=== PATIENT | female | born 1935 | race Caucasian/White ===

== ENCOUNTER 2017-05-14 07:40 | Outpatient (CLI) | payer MEDICARE ==
[~2017-05-14 07:40] MED LIST: ACETAMINOPHEN 325 MG TABLET PO PRN; CONTAINER EMPTY IV PRN; DEXTROSE 5%-WATER 250 ML IV PRN; DIPHENHYDRAMINE HCL 50 MG/ML VIAL IV PRN; IMMUNE GLOB GAM CAPRYLATE IV PRN
[2017-05-14 08:39] VITALS: BP 180/90
== END 2017-05-14 10:59 | disposition home or self-care (01) ==
LOC: II 07:40 → 5TH 08:27 → II 10:59
PROVIDERS: ATTEND Internal Medicine
PROC: 30233S1 Transfusion of Nonautologous Globulin into Peripheral Vein, Percutaneous Approach (ICD-10-PCS; principal; 2017-05-14)
PROC: 3E033GC Introduction of Other Therapeutic Substance into Peripheral Vein, Percutaneous Approach (ICD-10-PCS; 2017-05-14)
DX: D69.3 Immune thrombocytopenic purpura (principal)
CPT/HCPCS: 96413; 96415; 96374; 96417; J1561; A9270 ×2; J1200; 96365; 96366; 96375; J3490

== ENCOUNTER 2017-08-04 08:57 | Outpatient (CLI) | payer MEDICARE ==
[~2017-08-04 08:57] MED LIST changes: -ACETAMINOPHEN 325 MG TABLET PO PRN; -CONTAINER EMPTY IV PRN; -DEXTROSE 5%-WATER 250 ML IV PRN; -DIPHENHYDRAMINE HCL 50 MG/ML VIAL IV PRN; +DISPOSABLE SUBCUT PRN; -IMMUNE GLOB GAM CAPRYLATE IV PRN; +ROMIPLOSTIM SUBCUT PRN
[2017-08-04 09:17] VITALS: BP 128/53
== END 2017-08-04 09:33 | disposition home or self-care (01) ==
LOC: II 08:57 → 5TH 08:59 → II 09:33
PROVIDERS: ATTEND Internal Medicine Hematology & Oncology
PROC: 3E0130M Introduction of Antineoplastic, Monoclonal Antibody, into Subcutaneous Tissue, Percutaneous Approach (ICD-10-PCS; principal; 2017-08-04)
DX: D69.3 Immune thrombocytopenic purpura (principal)
CPT/HCPCS: 96401; J3490; J2796

== ENCOUNTER 2017-08-11 12:02 | Outpatient (CLI) | payer MEDICARE ==
[2017-08-11 12:28] VITALS: BP 144/85
[2017-08-11] MEDS ORDERED: ROMIPLOSTIM SUBCUT PRN (12:39)
[2017-08-11] MEDS ORDERED: DISPOSABLE SUBCUT PRN (12:39)
== END 2017-08-11 13:40 | disposition home or self-care (01) ==
LOC: II 12:02 → 5TH 12:03 → II 13:40
PROVIDERS: ATTEND Internal Medicine Hematology & Oncology
PROC: 3E0130M Introduction of Antineoplastic, Monoclonal Antibody, into Subcutaneous Tissue, Percutaneous Approach (ICD-10-PCS; principal; 2017-08-11)
DX: D69.3 Immune thrombocytopenic purpura (principal)
CPT/HCPCS: 96401; J3490; J2796

== ENCOUNTER 2017-08-18 12:48 | Outpatient (CLI) | payer MEDICARE ==
[2017-08-18] MEDS ORDERED: ROMIPLOSTIM SUBCUT PRN (13:15)
[2017-08-18] MEDS ORDERED: DISPOSABLE SUBCUT PRN (13:15)
[2017-08-18 14:21] VITALS: BP 118/45
== END 2017-08-18 14:22 | disposition home or self-care (01) ==
LOC: II 12:48 → 5TH 12:49 → II 14:22
PROVIDERS: ATTEND Internal Medicine
PROC: 3E0130M Introduction of Antineoplastic, Monoclonal Antibody, into Subcutaneous Tissue, Percutaneous Approach (ICD-10-PCS; principal; 2017-08-18)
DX: D69.3 Immune thrombocytopenic purpura (principal)
CPT/HCPCS: 96401; J3490; J2796

== ENCOUNTER 2017-09-08 14:13 | Outpatient (CLI) | payer MEDICARE ==
[2017-09-08 14:29] VITALS: BP 156/52
[2017-09-08] MEDS ORDERED: DISPOSABLE SUBCUT PRN ×2 (15:06→15:18)
[2017-09-08] MEDS ORDERED: ROMIPLOSTIM SUBCUT PRN ×2 (15:06→15:18)
== END 2017-09-08 16:13 | disposition home or self-care (01) ==
LOC: II 14:13 → 5TH 14:15 → II 16:13
PROVIDERS: ATTEND Internal Medicine Hematology & Oncology
PROC: 3E013GC Introduction of Other Therapeutic Substance into Subcutaneous Tissue, Percutaneous Approach (ICD-10-PCS; principal; 2017-09-08)
DX: D69.3 Immune thrombocytopenic purpura (principal)
CPT/HCPCS: 96372; J3490; J2796

== ENCOUNTER 2017-09-15 12:03 | Outpatient (CLI) | payer MEDICARE ==
[2017-09-15 12:52] VITALS: BP 169/56
[2017-09-15] MEDS ORDERED: ROMIPLOSTIM SUBCUT PRN ×2 (13:05→13:12)
[2017-09-15] MEDS ORDERED: DISPOSABLE SUBCUT PRN ×2 (13:05→13:12)
== END 2017-09-15 14:20 | disposition home or self-care (01) ==
LOC: II 12:03 → 5TH 12:05 → II 14:20
PROVIDERS: ATTEND Internal Medicine Hematology & Oncology
PROC: 3E013GC Introduction of Other Therapeutic Substance into Subcutaneous Tissue, Percutaneous Approach (ICD-10-PCS; principal; 2017-09-15)
DX: D69.3 Immune thrombocytopenic purpura (principal)
CPT/HCPCS: 96372; J3490; J2796

== ENCOUNTER 2017-09-29 12:13 | Outpatient (CLI) | payer MEDICARE ==
[2017-09-29] MEDS ORDERED: DISPOSABLE SUBCUT PRN (12:54)
[2017-09-29] MEDS ORDERED: ROMIPLOSTIM SUBCUT PRN (12:54)
[2017-09-29 13:00] VITALS: BP 122/77
== END 2017-09-29 13:50 | disposition home or self-care (01) ==
LOC: II 12:13
PROVIDERS: ATTEND Internal Medicine Hematology & Oncology
PROC: 3E013GC Introduction of Other Therapeutic Substance into Subcutaneous Tissue, Percutaneous Approach (ICD-10-PCS; principal; 2017-09-29)
DX: D69.3 Immune thrombocytopenic purpura (principal)
CPT/HCPCS: 96401; J3490; J2796

== ENCOUNTER 2017-10-06 11:56 | Outpatient (CLI) | payer MEDICARE ==
[2017-10-06] MEDS ORDERED: ROMIPLOSTIM SUBCUT PRN (12:40)
[2017-10-06] MEDS ORDERED: DISPOSABLE SUBCUT PRN (12:40)
[2017-10-06 12:46] VITALS: BP 150/44
== END 2017-10-06 14:04 | disposition home or self-care (01) ==
LOC: II 11:56 → 5TH 12:38 → II 14:04
PROVIDERS: ATTEND Internal Medicine
PROC: 3E013GC Introduction of Other Therapeutic Substance into Subcutaneous Tissue, Percutaneous Approach (ICD-10-PCS; principal; 2017-10-06)
DX: D69.3 Immune thrombocytopenic purpura (principal)
CPT/HCPCS: 96372; J3490; J2796

== ENCOUNTER 2017-10-13 11:38 | Outpatient (CLI) | payer MEDICARE ==
[2017-10-13] MEDS ORDERED: DISPOSABLE SUBCUT PRN (11:52)
[2017-10-13] MEDS ORDERED: ROMIPLOSTIM SUBCUT PRN (11:52)
[2017-10-13 12:33] VITALS: BP 148/53
== END 2017-10-13 12:42 | disposition home or self-care (01) ==
LOC: II 11:38 → 5TH 11:41 → II 12:42
PROVIDERS: ATTEND Internal Medicine Hematology & Oncology
PROC: 3E013GC Introduction of Other Therapeutic Substance into Subcutaneous Tissue, Percutaneous Approach (ICD-10-PCS; principal; 2017-10-13)
DX: D69.3 Immune thrombocytopenic purpura (principal)
CPT/HCPCS: 96372; J3490; J2796

== ENCOUNTER 2017-10-20 11:54 | Outpatient (CLI) | payer MEDICARE ==
[2017-10-20] MEDS ORDERED: ROMIPLOSTIM SUBCUT PRN (12:26)
[2017-10-20] MEDS ORDERED: DISPOSABLE SUBCUT PRN (12:26)
[2017-10-20 12:40] VITALS: BP 144/54
== END 2017-10-20 13:22 | disposition home or self-care (01) ==
LOC: II 11:54 → 5TH 12:39 → II 13:22
PROVIDERS: ATTEND Internal Medicine Hematology & Oncology
PROC: 3E013GC Introduction of Other Therapeutic Substance into Subcutaneous Tissue, Percutaneous Approach (ICD-10-PCS; principal; 2017-10-20)
DX: D69.3 Immune thrombocytopenic purpura (principal)
CPT/HCPCS: 96401; J3490; J2796; 96372

== ENCOUNTER 2017-10-28 13:48 | Outpatient (CLI) | payer MEDICARE ==
[~2017-10-28 13:48] MED LIST changes: +ACETAMINOPHEN 325 MG TABLET PO PRN; +CONTAINER EMPTY IV PRN; +DEXTROSE 5%-WATER 250 ML IV PRN; +DIPHENHYDRAMINE HCL 50 MG/ML VIAL IV PRN; +IMMUNE GLOB GAM CAPRYLATE IV PRN
[2017-10-28] MEDS ORDERED: DISPOSABLE SUBCUT PRN (14:07)
[2017-10-28] MEDS ORDERED: ROMIPLOSTIM SUBCUT PRN (14:07)
== END 2017-10-28 16:04 | disposition home or self-care (01) ==
LOC: II 13:48 → 5TH 13:48 → II 16:04
PROVIDERS: ATTEND Internal Medicine
PROC: 3E013GC Introduction of Other Therapeutic Substance into Subcutaneous Tissue, Percutaneous Approach (ICD-10-PCS; principal; 2017-10-28)
DX: D69.3 Immune thrombocytopenic purpura (principal)
CPT/HCPCS: 96372; J3490; J2796; J1561

== ENCOUNTER 2017-11-04 09:29 | Outpatient (CLI) | payer MEDICARE ==
[2017-11-04] MEDS ORDERED: DISPOSABLE SUBCUT PRN (10:00)
[2017-11-04] MEDS ORDERED: ROMIPLOSTIM SUBCUT PRN (10:00)
[2017-11-04 10:21] VITALS: BP 152/49
== END 2017-11-04 10:52 | disposition home or self-care (01) ==
LOC: II 09:29 → 5TH 09:37 → II 10:52
PROVIDERS: ATTEND Internal Medicine
PROC: 3E013GC Introduction of Other Therapeutic Substance into Subcutaneous Tissue, Percutaneous Approach (ICD-10-PCS; principal; 2017-11-04)
DX: D69.3 Immune thrombocytopenic purpura (principal)
CPT/HCPCS: 96401; J3490; J2796

== ENCOUNTER → 2017-11-09 | Outpatient (CLI) | payer MEDICARE ==
[2017-11-09 16:43] LABS: ALANINE AMINOTRANSFERASE 22 U/L (9-52); ALBUMIN 3.8 g/dL (3.5-5.0); ALKALINE PHOSPHATASE 51 U/L (38-126); ANION GAP 8 (5-19); ASPARTATE AMINO TRANSFERASE 21 U/L (14-36); BILIRUBIN,DIRECT 0.4 mg/dL (0.0-0.4); BILIRUBIN,TOTAL 1.4 mg/dL (0.2-1.3); BLOOD UREA NITROGEN 24 mg/dL (7-20); CALCIUM 9.3 mg/dL (8.4-10.2); CARBON DIOXIDE 31 mmol/L (22-30); CHLORIDE 103 mmol/L (98-107); GLUCOSE 88 mg/dL (75-110); POTASSIUM 4.1 mmol/L (3.6-5.0); SODIUM 141.7 mmol/L (137-145); TOTAL PROTEIN 6.5 g/dL (6.3-8.2)
== END ==
LOC: OD 15:42
PROVIDERS: ATTEND Family Medicine
DX: I10 Essential (primary) hypertension (principal)
CPT/HCPCS: 36415; 80053

== ENCOUNTER 2017-11-11 09:10 | Outpatient (CLI) | payer MEDICARE ==
[2017-11-11 09:31] VITALS: BP 140/39
[2017-11-11] MEDS ORDERED: DISPOSABLE SUBCUT PRN (09:38)
[2017-11-11] MEDS ORDERED: ROMIPLOSTIM SUBCUT PRN (09:38)
== END 2017-11-11 10:33 | disposition home or self-care (01) ==
LOC: II 09:10 → 5TH 09:28 → II 10:33
PROVIDERS: ATTEND Internal Medicine Hematology & Oncology
PROC: 3E013GC Introduction of Other Therapeutic Substance into Subcutaneous Tissue, Percutaneous Approach (ICD-10-PCS; principal; 2017-11-11)
DX: D69.3 Immune thrombocytopenic purpura (principal)
CPT/HCPCS: 96372; J3490; J2796

== ENCOUNTER 2017-11-18 11:33 | Outpatient (CLI) | payer MEDICARE ==
[~2017-11-18 11:33] MED LIST changes: -ACETAMINOPHEN 325 MG TABLET PO PRN; -CONTAINER EMPTY IV PRN; -DEXTROSE 5%-WATER 250 ML IV PRN; -DIPHENHYDRAMINE HCL 50 MG/ML VIAL IV PRN; -IMMUNE GLOB GAM CAPRYLATE IV PRN
[2017-11-18 12:15] VITALS: BP 136/48
== END 2017-11-18 12:17 | disposition home or self-care (01) ==
LOC: II 11:33 → 5TH 11:38 → II 12:17
PROVIDERS: ATTEND Internal Medicine
PROC: 3E013GC Introduction of Other Therapeutic Substance into Subcutaneous Tissue, Percutaneous Approach (ICD-10-PCS; principal; 2017-11-18)
DX: D69.3 Immune thrombocytopenic purpura (principal)
CPT/HCPCS: 96372; J3490; J2796

== ENCOUNTER 2017-11-25 09:51 | Outpatient (CLI) | payer MEDICARE | END 2017-11-25 11:14 | disposition home or self-care (01) | LOC: II 09:51 → 5TH 09:59 → II 11:14 | PROVIDERS: ATTEND Internal Medicine Hematology & Oncology | PROC: 3E013GC Introduction of Other Therapeutic Substance into Subcutaneous Tissue, Percutaneous Approach (ICD-10-PCS; principal; 2017-11-25) | DX: D69.3 Immune thrombocytopenic purpura (principal) | CPT/HCPCS: 96402; J3490; J2796 ==

== ENCOUNTER 2017-12-02 09:18 | Outpatient (CLI) | payer MEDICARE ==
[2017-12-02] MEDS ORDERED: DISPOSABLE SUBCUT PRN (09:30)
[2017-12-02] MEDS ORDERED: ROMIPLOSTIM SUBCUT PRN (09:30)
[2017-12-02 10:16] VITALS: BP 132/41
== END 2017-12-02 10:26 | disposition home or self-care (01) ==
LOC: II 09:18 → 5TH 09:21 → II 10:26
PROVIDERS: ATTEND Internal Medicine Hematology & Oncology
PROC: 3E023GC Introduction of Other Therapeutic Substance into Muscle, Percutaneous Approach (ICD-10-PCS; principal; 2017-12-02)
DX: D69.3 Immune thrombocytopenic purpura (principal)
CPT/HCPCS: 96401; J3490; J2796

== ENCOUNTER 2017-12-09 09:29 | Outpatient (CLI) | payer MEDICARE ==
[2017-12-09] MEDS ORDERED: DISPOSABLE SUBCUT PRN (09:57)
[2017-12-09] MEDS ORDERED: ROMIPLOSTIM SUBCUT PRN (09:57)
[2017-12-09 09:59] VITALS: BP 146/48
== END 2017-12-09 10:38 | disposition home or self-care (01) ==
LOC: II 09:29 → 5TH 10:10 → II 10:38
PROVIDERS: ATTEND Internal Medicine Hematology & Oncology
PROC: 3E013GC Introduction of Other Therapeutic Substance into Subcutaneous Tissue, Percutaneous Approach (ICD-10-PCS; principal; 2017-12-09)
DX: D69.3 Immune thrombocytopenic purpura (principal)
CPT/HCPCS: 96372; J3490; J2796

== ENCOUNTER 2017-12-16 09:31 | Outpatient (CLI) | payer MEDICARE ==
[2017-12-16 09:52] VITALS: BP 149/54
== END 2017-12-16 10:20 | disposition home or self-care (01) ==
LOC: II 09:31 → 5TH 09:38 → II 10:20
PROVIDERS: ATTEND Internal Medicine Hematology & Oncology
PROC: 3E013GC Introduction of Other Therapeutic Substance into Subcutaneous Tissue, Percutaneous Approach (ICD-10-PCS; principal; 2017-12-16)
DX: D69.3 Immune thrombocytopenic purpura (principal)
CPT/HCPCS: 96372; J3490; J2796

== ENCOUNTER 2017-12-23 09:22 | Outpatient (CLI) | payer MEDICARE ==
[2017-12-23 10:36] VITALS: BP 154/50
== END 2017-12-23 10:36 | disposition home or self-care (01) ==
LOC: II 09:22 → 5TH 09:25 → II 10:36
PROVIDERS: ATTEND Internal Medicine Hematology & Oncology
PROC: 3E013GC Introduction of Other Therapeutic Substance into Subcutaneous Tissue, Percutaneous Approach (ICD-10-PCS; principal; 2017-12-23)
DX: D69.3 Immune thrombocytopenic purpura (principal)
CPT/HCPCS: 96372; J3490; J2796

== ENCOUNTER 2017-12-30 09:29 | Outpatient (CLI) | payer MEDICARE ==
[2017-12-30] MEDS ORDERED: DISPOSABLE SUBCUT PRN (09:44)
[2017-12-30] MEDS ORDERED: ROMIPLOSTIM SUBCUT PRN (09:44)
[2017-12-30 09:49] VITALS: BP 178/71
== END 2017-12-30 10:40 | disposition home or self-care (01) ==
LOC: II 09:29 → 5TH 09:32 → II 10:40
PROVIDERS: ATTEND Internal Medicine Hematology & Oncology
PROC: 3E013GC Introduction of Other Therapeutic Substance into Subcutaneous Tissue, Percutaneous Approach (ICD-10-PCS; principal; 2017-12-30)
DX: D69.3 Immune thrombocytopenic purpura (principal)
CPT/HCPCS: 96372; J3490; J2796

== ENCOUNTER 2018-01-06 09:25 | Outpatient (CLI) | payer MEDICARE ==
[2018-01-06] MEDS ORDERED: DISPOSABLE SUBCUT PRN (09:55)
[2018-01-06] MEDS ORDERED: ROMIPLOSTIM SUBCUT PRN (09:55)
== END 2018-01-06 10:50 | disposition home or self-care (01) ==
LOC: II 09:25 → 5TH 09:26 → II 10:50
PROVIDERS: ATTEND Internal Medicine Hematology & Oncology
PROC: 3E013GC Introduction of Other Therapeutic Substance into Subcutaneous Tissue, Percutaneous Approach (ICD-10-PCS; principal; 2018-01-06)
DX: D69.3 Immune thrombocytopenic purpura (principal)
CPT/HCPCS: 96401; J3490; J2796

== ENCOUNTER → 2018-01-11 | Outpatient (CLI) | payer MEDICARE ==
[2018-01-11 12:30] LABS: ALANINE AMINOTRANSFERASE 26 U/L (9-52); ALBUMIN 3.8 g/dL (3.5-5.0); ALKALINE PHOSPHATASE 53 U/L (38-126); ANION GAP 8 (5-19); ASPARTATE AMINO TRANSFERASE 20 U/L (14-36); BILIRUBIN,DIRECT 0.3 mg/dL (0.0-0.4); BILIRUBIN,TOTAL 1.2 mg/dL (0.2-1.3); BLOOD UREA NITROGEN 23 mg/dL (7-20); CARBON DIOXIDE 34 mmol/L (22-30); CHLORIDE 103 mmol/L (98-107); CHOLESTEROL 226.67 mg/dL (0-200); GLUCOSE 96 mg/dL (75-110); POTASSIUM 4.4 mmol/L (3.6-5.0); SODIUM 145.2 mmol/L (137-145); TOTAL PROTEIN 6.7 g/dL (6.3-8.2); TRIGLYCERIDES 90 mg/dL (<150)
[2018-01-11 12:32] LABS: CALCIUM 9.6 mg/dL (8.4-10.2)
[2018-01-11 12:41] LABS: DIRECT LDL 125 mg/dL (<100)
== END ==
LOC: OD 10:53
PROVIDERS: ATTEND Family Medicine
DX: E78.2 Mixed hyperlipidemia (principal); E53.8 Deficiency of other specified B group vitamins
CPT/HCPCS: 36415; 80053; 80061; 82306; 82607

== ENCOUNTER 2018-01-13 09:52 | Outpatient (CLI) | payer MEDICARE ==
[2018-01-13 10:10] VITALS: BP 138/51
[2018-01-13] MEDS ORDERED: DISPOSABLE SUBCUT PRN ×2 (10:19→10:49)
[2018-01-13] MEDS ORDERED: ROMIPLOSTIM SUBCUT PRN ×2 (10:19→10:49)
== END 2018-01-13 11:53 | disposition home or self-care (01) ==
LOC: II 09:52 → 5TH 09:55 → II 11:53
PROVIDERS: ATTEND Internal Medicine Hematology & Oncology
PROC: 3E013GC Introduction of Other Therapeutic Substance into Subcutaneous Tissue, Percutaneous Approach (ICD-10-PCS; principal; 2018-01-13)
DX: D69.3 Immune thrombocytopenic purpura (principal)
CPT/HCPCS: 96372; J3490; J2796

== ENCOUNTER 2018-01-20 10:50 | Outpatient (CLI) | payer MEDICARE ==
[2018-01-20 11:28] VITALS: BP 132/48
== END 2018-01-20 11:28 | disposition home or self-care (01) ==
LOC: II 10:50 → 5TH 10:53 → II 11:28
PROVIDERS: ATTEND Internal Medicine Hematology & Oncology
PROC: 3E013GC Introduction of Other Therapeutic Substance into Subcutaneous Tissue, Percutaneous Approach (ICD-10-PCS; principal; 2018-01-20)
DX: D69.3 Immune thrombocytopenic purpura (principal)
CPT/HCPCS: 96401; 96372; J3490; J2796

== ENCOUNTER 2018-01-27 10:56 | Outpatient (CLI) | payer MEDICARE ==
[2018-01-27] MEDS ORDERED: DISPOSABLE SUBCUT PRN (11:03)
[2018-01-27] MEDS ORDERED: ROMIPLOSTIM SUBCUT PRN (11:03)
[2018-01-27 11:10] VITALS: BP 147/57
== END 2018-01-27 11:32 | disposition home or self-care (01) ==
LOC: II 10:56 → 5TH 11:11 → II 11:32
PROVIDERS: ATTEND Internal Medicine Hematology & Oncology
PROC: 3E013GC Introduction of Other Therapeutic Substance into Subcutaneous Tissue, Percutaneous Approach (ICD-10-PCS; principal; 2018-01-27)
DX: D69.3 Immune thrombocytopenic purpura (principal)
CPT/HCPCS: 96372; J2796; J3490

== ENCOUNTER 2018-02-03 10:55 | Outpatient (CLI) | payer MEDICARE ==
[2018-02-03 11:17] VITALS: BP 130/47
[2018-02-03] MEDS ORDERED: DISPOSABLE SUBCUT PRN (11:29)
[2018-02-03] MEDS ORDERED: ROMIPLOSTIM SUBCUT PRN (11:29)
== END 2018-02-03 11:52 | disposition home or self-care (01) ==
LOC: II 10:55
PROVIDERS: ATTEND Internal Medicine Hematology & Oncology
PROC: 3E013GC Introduction of Other Therapeutic Substance into Subcutaneous Tissue, Percutaneous Approach (ICD-10-PCS; principal; 2018-02-03)
DX: D69.3 Immune thrombocytopenic purpura (principal)
CPT/HCPCS: 96372; 96401; J2796; J3490

== ENCOUNTER 2018-02-10 10:38 | Outpatient (CLI) | payer MEDICARE ==
[2018-02-10] MEDS ORDERED: DISPOSABLE SUBCUT PRN (10:40)
[2018-02-10] MEDS ORDERED: ROMIPLOSTIM SUBCUT PRN (10:40)
[2018-02-10 10:59] VITALS: BP 144/50
== END 2018-02-10 11:26 | disposition home or self-care (01) ==
LOC: II 10:38 → 4W 10:45 → II 11:26
PROVIDERS: ATTEND Internal Medicine Hematology & Oncology
PROC: 3E013GC Introduction of Other Therapeutic Substance into Subcutaneous Tissue, Percutaneous Approach (ICD-10-PCS; principal; 2018-02-10)
DX: D69.3 Immune thrombocytopenic purpura (principal)
CPT/HCPCS: 96372; J3490; J2796

== ENCOUNTER 2018-02-17 10:45 | Outpatient (CLI) | payer MEDICARE | END 2018-02-17 11:30 | disposition home or self-care (01) | LOC: II 10:45 → 5TH 10:47 → II 11:30 | PROVIDERS: ATTEND Internal Medicine Hematology & Oncology | PROC: 3E013GC Introduction of Other Therapeutic Substance into Subcutaneous Tissue, Percutaneous Approach (ICD-10-PCS; principal; 2018-02-17) | DX: D69.3 Immune thrombocytopenic purpura (principal) | CPT/HCPCS: 96372; J3490; J2796 ==

== ENCOUNTER 2018-02-24 10:53 | Outpatient (CLI) | payer MEDICARE ==
[2018-02-24] MEDS ORDERED: ROMIPLOSTIM SUBCUT PRN (11:18)
[2018-02-24] MEDS ORDERED: DISPOSABLE SUBCUT PRN (11:18)
[2018-02-24 11:21] VITALS: BP 148/51
== END 2018-02-24 11:58 | disposition home or self-care (01) ==
LOC: II 10:53 → 5TH 10:57 → II 11:58
PROVIDERS: ATTEND Internal Medicine Hematology & Oncology
PROC: 3E013GC Introduction of Other Therapeutic Substance into Subcutaneous Tissue, Percutaneous Approach (ICD-10-PCS; principal; 2018-02-24)
DX: D69.3 Immune thrombocytopenic purpura (principal)
CPT/HCPCS: 96372; J3490; J2796

== ENCOUNTER 2018-03-03 11:16 | Outpatient (CLI) | payer MEDICARE ==
[2018-03-03 11:31] VITALS: BP 138/48
== END 2018-03-03 11:54 | disposition home or self-care (01) ==
LOC: II 11:16 → 5TH 11:19 → II 11:54
PROVIDERS: ATTEND Internal Medicine Hematology & Oncology
PROC: 3E013GC Introduction of Other Therapeutic Substance into Subcutaneous Tissue, Percutaneous Approach (ICD-10-PCS; principal; 2018-03-03)
DX: D69.3 Immune thrombocytopenic purpura (principal)
CPT/HCPCS: 96372; J3490; J2796

== ENCOUNTER 2018-03-11 12:25 | Outpatient (CLI) | payer MEDICARE, OTHER ==
[2018-03-11] MEDS ORDERED: DISPOSABLE SUBCUT PRN (12:41)
[2018-03-11] MEDS ORDERED: ROMIPLOSTIM SUBCUT PRN (12:41)
== END 2018-03-11 13:23 | disposition home or self-care (01) ==
LOC: 5TH 12:25 → II 12:25
PROVIDERS: ATTEND Internal Medicine Hematology & Oncology
PROC: 3E013GC Introduction of Other Therapeutic Substance into Subcutaneous Tissue, Percutaneous Approach (ICD-10-PCS; principal; 2018-03-11)
DX: D69.3 Immune thrombocytopenic purpura (principal)
CPT/HCPCS: 96372; J3490; J2796

== ENCOUNTER 2018-03-18 10:15 | Outpatient (CLI) | payer MEDICARE, OTHER ==
[2018-03-18] MEDS ORDERED: DISPOSABLE SUBCUT PRN (10:20)
[2018-03-18] MEDS ORDERED: ROMIPLOSTIM SUBCUT PRN (10:20)
[2018-03-18 10:37] VITALS: BP 171/48
== END 2018-03-18 11:49 | disposition home or self-care (01) ==
LOC: II 10:15 → 5TH 10:23 → II 11:49
PROVIDERS: ATTEND Internal Medicine
PROC: 3E013GC Introduction of Other Therapeutic Substance into Subcutaneous Tissue, Percutaneous Approach (ICD-10-PCS; principal; 2018-03-18)
DX: D69.3 Immune thrombocytopenic purpura (principal)
CPT/HCPCS: 96372; J3490; J2796

== ENCOUNTER → 2018-05-10 | Outpatient (CLI) | payer MEDICARE, OTHER ==
[2018-05-10 12:44] LABS: ALANINE AMINOTRANSFERASE 21 U/L (9-52); ALBUMIN 3.5 g/dL (3.5-5.0); ALKALINE PHOSPHATASE 41 U/L (38-126); ANION GAP 8 (5-19); ASPARTATE AMINO TRANSFERASE 22 U/L (14-36); BILIRUBIN,DIRECT 0.2 mg/dL (0.0-0.4); BILIRUBIN,TOTAL 1.3 mg/dL (0.2-1.3); BLOOD UREA NITROGEN 23 mg/dL (7-20); CALCIUM 9.4 mg/dL (8.4-10.2); CARBON DIOXIDE 33 mmol/L (22-30); CHLORIDE 103 mmol/L (98-107); CHOLESTEROL 222.91 mg/dL (0-200); GLUCOSE 93 mg/dL (75-110); POTASSIUM 4.3 mmol/L (3.6-5.0); SODIUM 143.5 mmol/L (137-145); TOTAL PROTEIN 6.4 g/dL (6.3-8.2); TRIGLYCERIDES 96 mg/dL (<150)
[2018-05-10 12:55] LABS: DIRECT LDL 112 mg/dL (<100)
== END ==
LOC: OD 11:28
PROVIDERS: ATTEND Family Medicine
DX: E78.00 Pure hypercholesterolemia, unspecified (principal)
CPT/HCPCS: 36415; 80053; 80061

== ENCOUNTER 2018-05-13 09:50 | Outpatient (CLI) | payer MEDICARE, OTHER ==
[2018-05-13] MEDS ORDERED: DISPOSABLE SUBCUT PRN (10:03)
[2018-05-13] MEDS ORDERED: ROMIPLOSTIM SUBCUT PRN (10:03)
[2018-05-13 10:16] VITALS: BP 120/53
== END 2018-05-13 10:26 | disposition home or self-care (01) ==
LOC: II 09:50 → 5TH 09:56 → II 10:26
PROVIDERS: ATTEND Internal Medicine Hematology & Oncology
PROC: 3E013GC Introduction of Other Therapeutic Substance into Subcutaneous Tissue, Percutaneous Approach (ICD-10-PCS; principal; 2018-05-13)
DX: D69.3 Immune thrombocytopenic purpura (principal)
CPT/HCPCS: 96372; J3490; J2796

== ENCOUNTER 2018-10-15 13:59 | Outpatient (CLI) | payer MEDICARE, OTHER ==
[2018-10-15] MEDS ORDERED: DISPOSABLE SUBCUT PRN (14:08)
[2018-10-15] MEDS ORDERED: ROMIPLOSTIM SUBCUT PRN (14:08)
[2018-10-15 14:22] VITALS: BP 142/66
== END 2018-10-15 14:33 | disposition home or self-care (01) ==
LOC: II 13:59
PROVIDERS: ATTEND Internal Medicine Hematology & Oncology
PROC: 3E013GC Introduction of Other Therapeutic Substance into Subcutaneous Tissue, Percutaneous Approach (ICD-10-PCS; principal; 2018-10-15)
DX: D69.3 Immune thrombocytopenic purpura (principal)
CPT/HCPCS: 96372; J3490; J2796

== ENCOUNTER 2018-10-22 12:21 | Outpatient (CLI) | payer MEDICARE, OTHER ==
[2018-10-22] MEDS ORDERED: ROMIPLOSTIM SUBCUT PRN (12:29)
[2018-10-22] MEDS ORDERED: DISPOSABLE SUBCUT PRN (12:29)
[2018-10-22 12:41] VITALS: BP 155/72
== END 2018-10-22 13:29 | disposition home or self-care (01) ==
LOC: II 12:21 → 5TH 12:46 → II 13:29
PROVIDERS: ATTEND Internal Medicine
PROC: 3E013GC Introduction of Other Therapeutic Substance into Subcutaneous Tissue, Percutaneous Approach (ICD-10-PCS; principal; 2018-10-22)
DX: D69.3 Immune thrombocytopenic purpura (principal)
CPT/HCPCS: 96372; J3490; J2796

== ENCOUNTER 2018-10-25 16:31 | Emergency (ER) | payer MEDICARE, OTHER ==
--- NOTE | 2018-10-25 17:22 | RADIOLOGY REPORT (SQ) ---
EXAM DESCRIPTION: KNEE RIGHT 4 VIEWS COMPLETED DATE/TIME: 10/25/2018 5:10 pm REASON FOR STUDY: Fell in parking lot and injured R knee COMPARISON: None. NUMBER OF VIEWS: Four views. TECHNIQUE: AP, lateral, and both oblique radiographic images acquired of the right knee. LIMITATIONS: None. FINDINGS: MINERALIZATION: Normal. BONES: No acute fracture or dislocation. No worrisome bone lesions. JOINT: No effusion. Advanced patellofemoral, medial, and lateral compartment joint space narrowing SOFT TISSUES: Diffuse prepatellar soft tissue swelling. No radio-opaque foreign body. OTHER: No other significant finding. IMPRESSION: No acute fracture or malalignment. Prepatellar soft tissue swelling without joint effus ion. TECHNICAL DOCUMENTATION: JOB ID: [id number] [employer]- All Rights Reserved Reading location - IP/workstation name: [email or web address]
[2018-10-25] MEDS ORDERED: ACETAMINOPHEN 325 MG TABLET PO ONE (18:27)
--- NOTE | 2018-10-25 18:30 | ER Document Report ---
ED Medical Screen (RME) - General Chief Complaint: Knee Injury Stated Complaint: KNEE INJURY Time Seen by Provider: 10/25/18 18:23 Primary Care Provider: LAILA GARCIA MD [Primary Care Provider] - Follow up as needed Notes: Patient is an 82-year-old female presents to the emergency department for generalized right knee and lower tib-fib pain. Patient states she was holding her 's service dog's leash when it moved forward and pulled her onto her right knee. Patient is denying any loss of consciousness or hitting her head. Patient is complaining of generalized right knee pain as well as right tib-fib pain distally upon palpation. Patient had skinny jeans on with a full sock and sneaker. Full examination was unable to be performed in triage. Patient does complain of generalized pain to palpation of distal and proximal right tib-fib, will order x-rays. GENERAL: Alert, interacts well. No acute distress. EXTREMITIES: Moves all 4 extremities spontaneously. Patient does have skinny jeans on and is sitting in a wheelchair. There does appear to be some swelling noted to the patient's right knee and pain on palpation of distal tib-fib, no obvious bleeding noted. BACK: no cervical, thoracic, lumbar midline tenderness. No saddle anesthesia, normal distal neurovascular exam. NEUROLOGICAL: Alert and oriented x3. Normal speech. cranial nerves II through XII grossly intact. PSYCH: Normal affect, normal mood. I have greeted and performed a rapid initial assessment of this patient. A comprehensive ED assessment and evaluation of the patient, analysis of test results and completion of the medical decision making process will be conducted by additional ED providers. TRAVEL OUTSIDE OF THE [place] IN LAST 30 DAYS: No - Related Data Allergies/Adverse Reactions: No Known Allergies Allergy (Verified 05/30/13 15:18) Past Medical History - Social History Chew tobacco use (# tins/day): No Frequency of alcohol use: None Drug Abuse: None - Past Medical History Cardiac Medical History: Reports: Hx Hypertension Denies: Hx Heart Attack Pulmonary Medical History: Denies: Hx Asthma Neurological Medical History: Denies: Hx Cerebrovascular Accident, Hx Seizures Renal/ Medical History: Denies: Hx Peritoneal Dialysis GI Medical History: Denies: Hx Hepatitis, Hx Hiatal Hernia, Hx Ulcer Infectious Medical History: Denies: Hx Hepatitis Past Surgical History: Denies: Hx Hysterectomy, Hx Mastectomy, Hx Open Heart Aburot rgery, Hx Pacemaker Physical Exam - Vital signs Vitals: Temp Pulse Resp BP Pulse Ox 97.3 F 57 L 16 185/58 H 99 10/25/18 16:42 10/25/18 16:42 10/25/18 16:42 10/25/18 16:42 10/25/18 16:42 Course - Vital Signs Vital signs: Temp Pulse Resp BP Pulse Ox 97.3 F 57 L 16 185/58 H 99 10/25/18 16:42 10/25/18 16:42 10/25/18 16:42 10/25/18 16:42 10/25/18 16:42 Doctor's Discharge - Discharge Referrals: LAILA GARCIA MD [Primary Care Provider] - Follow up as needed
--- NOTE | 2018-10-25 19:22 | RADIOLOGY REPORT (SQ) ---
EXAM DESCRIPTION: TIBIA FIBULA RIGHT COMPLETED DATE/TIME: 10/25/2018 6:44 pm REASON FOR STUDY: pain/fall COMPARISON: None. NUMBER OF VIEWS: Two views. TECHNIQUE: Two radiographic images acquired of the right tibia and fibula to include the knee and an kle in at least one projection. LIMITATIONS: None. FINDINGS: MINERALIZATION: Normal. BONES: No acute fracture or dislocation. No worrisome bone lesions. SOFT TISSUES: No obvious swelling or foreign body. OTHER: . No gross knee joint effusion. IMPRESSION: No acute fracture or malalignment right tibia/ fibula TECHNICAL DOCUMENTATION: JOB ID: [id number] [employer]- All Rights Reserved Reading location - IP/workstation name: [email or web address]
--- NOTE | 2018-10-25 20:59 | ER Document Report ---
ED General - General Chief Complaint: Knee Injury Stated Complaint: KNEE INJURY Time Seen by Provider: 10/25/18 18:23 Primary Care Provider: LAILA GARCIA MD [Primary Care Provider] - Follow up as needed Information source: Patient TRAVEL OUTSIDE OF THE [place] IN LAST 30 DAYS: No - HPI Patient complains to provider of: Right knee/proximal tib-fib injury Onset: Just prior to arrival Onset/Duration: Sudden Quality of pain: Sharp Severity: Moderate Context: Ground-level fall at the [employer] Associated symptoms: None Exacerbated by: Movement, Other - Palpation Relieved by: Remaining still Similar symptoms previously: No Recently seen / treated by doctor: No Notes: 82-year-old female had a slip and fall going [place] [employer] this afternoon. She has a significant bruise to her right knee and the proximal tibial area. She is able to bear weight with some discomfort. She denies other injuries. She denies blood thinner usage - Related Data Allergies/Adverse Reactions: No Known Allergies Allergy (Verified 05/30/13 15:18) Past Medical History - General Information source: Patient - Social History Smoking Status: Never Smoker Chew tobacco use (# tins/day): No Frequency of alcohol use: None Drug Abuse: None Family History: Reviewed & Not Pertinent Patient has suicidal ideation: No Patient has homicidal ideation: No - Past Medical History Cardiac Medical History: Reports: Hx Hypertension Denies: Hx Heart Attack Pulmonary Medical History: Denies: Hx Asthma Neurological Medical History: Denies: Hx Cerebrovascular Accident, Hx Seizures Renal/ Medical History: Denies: Hx Peritoneal Dialysis GI Medical History: Denies: Hx Hepatitis, Hx Hiatal Hernia, Hx Ulcer Infectious Medical History: Denies: Hx Hepatitis Past Surgical History: Denies: Hx Hysterectomy, Hx Mastectomy, Hx Open Heart Surgery, Hx Pacemaker Review of Systems - Review of Systems Notes: Constitutional: No fevers. No chills. EENT: No eye redness. No eye pain. No ear pain. No sore throat. Cardiovascular: No chest pain. No palpitations. Respiratory: No cough. No shortness of breath. No respiratory distress. Gastrointestinal: No abdominal pain. No nausea, vomiting, or diarrhea. Genitourinary: Atraumatic. No lesions. No pain. No discharge. Musculoskeletal: Right knee and proximal tib-fib injury. Hematoma. Ecchymosis. Skin: No rash or lesions. Lymphatic: No swollen lymph nodes. Neurologic: No headache. No syncope. Psychiatric: No suicidal or homicidal ideation. Physical Exam - Vital signs Vitals: Temp Pulse Resp BP Pulse Ox 97.3 F 57 L 16 185/58 H 99 10/25/18 16:42 10/25/18 16:42 10/25/18 16:42 10/25/18 16:42 10/25/18 16:42 - Notes Notes: General: Well-developed, well-nourished. In no acute distress. Non-toxic appearing. Cardiac: Well-perfused. Regular rate and rhythm. No murmurs, rubs, or gallops. Pulmonary: No respiratory distress. No cyanosis. Bilateral lung fiels are clear to auscultation. Abdominal: Non-distended. Non-rigid. Bowels sounds are present in all four quadrants. No guarding or rebound. HEENT: Head is atraumatic. Conjunctivae not reddened. No tearing. PERRL. EOMI. Orbits atraumatic. No periorbital swelling or erythema. Oropharynx is without erythema, swelling, or exudates. Neck: Supple. No adenopathy. No meningismus. Dermatologic: Warm with good turgor. No rash. Atraumatic. Chest: Atraumatic. No chest wall tenderness to palpation. Musculoskeletal: Significant hematoma to the medial aspect of the right knee in the anterior proximal aspect of the tibia. There is no bony deformity. Patient is able to bear weight and ambulate. Otherwise normal range of motion. Remainder of exam is unremarkable. Distal neurovascular exam is intact Genitourinary: Examination deferred Neurologic: No gross neurologic deficits. Psychiatric: Normal mood. Course - Re-evaluation Re-evalutation: 10/25/18 20:58 X-rays negative will discharge home. Patient says that she only takes Tylenol for injuries. - Vital Signs Vital signs: Temp Pulse Resp BP Pulse Ox 97.3 F 57 L 16 185/58 H 99 10/25/18 16:42 10/25/18 16:42 10/25/18 16:42 10/25/18 16:42 10/25/18 16:42 - Diagnostic Test Radiology reviewed: Reports reviewed Discharge - Discharge Clinical Impression: Contusion, knee and lower leg Qualifiers: Encounter type: initial encounter Laterality: right Qualified Code(s): S80.01XA - Contusion of right knee, initial encounter; S80.11XA - Contusion of right lower leg, initial encounter Condition: Good Disposition: HOME, SELF-CARE Instructions: Suspected Internal Knee Injury ([facility]), Contusion ([facility]) Referrals: LAILA GARCIA MD [Primary Care Provider] - Follow up in 1 week
[2018-10-25 21:09] VITALS: BP 181/54
== END 2018-10-25 21:08 | disposition home or self-care (01) ==
LOC: ER 16:31
DX: S80.01XA Contusion of right knee, initial encounter (principal); S80.11XA Contusion of right lower leg, initial encounter; W01.0XXA Fall on same level from slipping, tripping and stumbling without subsequent striking against object, initial encounter; I10 Essential (primary) hypertension
CPT/HCPCS: 99283; 73564; 73590; A9270

== ENCOUNTER 2018-10-26 16:30 | Emergency (ER) | payer MEDICARE, OTHER ==
--- NOTE | 2018-10-26 17:53 | ER Document Report ---
ED General - General Chief Complaint: Knee Pain Stated Complaint: LEG PAIN Time Seen by Provider: 10/26/18 17:39 Primary Care Provider: LAILA GARCIA MD [Primary Care Provider] - Follow up as needed Mode of Arrival: Ambulatory Information source: Patient TRAVEL OUTSIDE OF THE [place] IN LAST 30 DAYS: No - HPI Patient complains to provider of: Right knee and lower leg swelling and bruising after fall Onset: Other - Yesterday Onset/Duration: Gradual Quality of pain: Throbbing Severity: Moderate Context: Status post fall Associated symptoms: None Exacerbated by: Denies Relieved by: Denies Recently seen / treated by doctor: Yes Notes: 82-year-old female coming in today with large hematoma/ecchymosis of the right knee and lower leg. She was seen here last night after a ground-level fall at the [employer] [facility]. X-rays were negative. Patient concerned because there is more ecchymosis going down the leg. Just wanted to get it checked out. - Related Data Allergies/Adverse Reactions: No Known Allergies Allergy (Verified 10/26/18 17:27) Past Medical History - General Information source: Patient - Social History Smoking Status: Never Smoker Frequency of alcohol use: None Drug Abuse: None Family History: Reviewed & Not Pertinent Patient has suicidal ideation: No Patient has homicidal ideation: No - Past Medical History Cardiac Medical History: Reports: Hx Hypertension Denies: Hx Heart Attack Pulmonary Medical History: Denies: Hx Asthma Neurological Medical History: Denies: Hx Cerebrovascular Accident, Hx Seizures Renal/ Medical History: Denies: Hx Peritoneal Dialysis GI Medical History: Denies: Hx Hepatitis, Hx Hiatal Hernia, Hx Ulcer Infectious Medical History: Denies: Hx Hepatitis Past Surgical History: Reports: Hx Appendectomy, Hx Cholecystectomy, Hx Tonsillectomy. Denies: Hx Hysterectomy, Hx Mastectomy, Hx Open Heart Surgery, Hx Pacemaker Review of Systems - Review of Systems Notes: Constitutional: No fevers. No chills. EENT: No eye redness. No eye pain. No ear pain. No sore throat. Cardiovascular: No chest pain. No palpitations. Respiratory: No cough. No shortness of breath. No respiratory distress. Gastrointestinal: No abdominal pain. No nausea, vomiting, or diarrhea. Genitourinary: Atraumatic. No lesions. No pain. No discharge. Musculoskeletal: Right knee and lower leg pain. Bruising and swelling Skin: No rash or lesions. Lymphatic: No swollen lymph nodes. Neurologic: No headache. No syncope. Psychiatric: No suicidal or homicidal ideation. Physical Exam - Vital signs Vitals: Temp Pulse Resp BP Pulse Ox 97.9 F 58 L 14 146/59 H 97 10/26/18 16:40 10/26/18 16:40 10/26/18 16:40 10/26/18 16:40 10/26/18 16:40 - Notes Notes: General: Well-developed, well-nourished. In no acute distress. Non-toxic appearing. Cardiac: Well-perfused. Regular rate and rhythm. No murmurs, rubs, or gallops. Pulmonary: No respiratory distress. No cyanosis. Bilateral lung fiels are clear to auscultation. Abdominal: Non-distended. Non-rigid. Bowels sounds are present in all four quadrants. No guarding or rebound. HEENT: Head is atraumatic. Conjunctivae not reddened. No tearing. PERRL. EOMI. Orbits atraumatic. No periorbital swelling or erythema. Oropharynx is without erythema, swelling, or exudates. Neck: Supple. No adenopathy. No meningismus. Dermatologic: Warm with good turgor. No rash. Atraumatic. Chest: Atraumatic. No chest wall tenderness to palpation. Musculoskeletal: Right lower extremity is examined. A large hematoma to the medial aspect of the right knee and ecchymosis to the proximal third of the tib- fib region. No bony deformities. There are some mild abrasions right over the patella. These are slightly erythematous now. There is also a little bit of distal erythema. Calf is nontender to squeeze. Patient has 2+ posterior tibial and dorsalis pedis pulses. Genitourinary: Examination deferred Neurologic: No gross neurologic deficits. Psychiatric: Normal mood. Course - Re-evaluation Re-evalutation: 10/26/18 17:53 I saw the patient on her original visit. Her x-rays were negative. She does not seem to be having any new additional or worsening pain. It does appear that the hematoma that was present initially has started migrating due to gravity. Clinically patient does not have a deep vein thrombosis. Offered lower extremity venous Doppler and it was declined. I will start patient on some Keflex for the cellulitis appears to be developing around the abrasions. The patient again refused any prescriptive strength pain medication. 10/26/18 17:54 - Vital Signs Vital signs: Temp Pulse Resp BP Pulse Ox 97.9 F 58 L 14 146/59 H 97 10/26/18 16:40 10/26/18 16:40 10/26/18 16:40 10/26/18 16:40 10/26/18 16:40 Discharge - Discharge Clinical Impression: Hematoma, Abrasion Knee injury Qualifiers: Encounter type: subsequent encounter Laterality: right Qualified Code(s): S89.91XD - Unspecified injury of right lower leg, subsequent encounter Cellulitis Qualifiers: Site of cellulitis: extremity Site of cellulitis of extremity: lower extremity Laterality: right Qualified Code(s): L03.115 - Cellulitis of right lower limb Condition: Good Disposition: HOME, SELF-CARE Prescriptions: Cephalexin Monohydrate [Keflex 500 mg Capsule] 500 mg PO Q6H #40 capsule Referrals: LAILA GARCIA MD [Primary Care Provider] - Follow up as needed CINDY RIVERA MD [ACTIVE STAFF] - Follow up tomorrow
[2018-10-26 18:14] VITALS: BP 148/64
== END 2018-10-26 18:14 | disposition home or self-care (01) ==
LOC: ER 16:30
DX: S80.01XA Contusion of right knee, initial encounter (principal); S80.11XA Contusion of right lower leg, initial encounter; L03.115 Cellulitis of right lower limb; W19.XXXA Unspecified fall, initial encounter; Y92.39 Other specified sports and athletic area as the place of occurrence of the external cause; I10 Essential (primary) hypertension
CPT/HCPCS: 99283

== ENCOUNTER 2018-10-29 13:50 | Outpatient (CLI) | payer MEDICARE, OTHER ==
[2018-10-29] MEDS ORDERED: ROMIPLOSTIM SUBCUT PRN (14:11)
[2018-10-29] MEDS ORDERED: DISPOSABLE SUBCUT PRN (14:11)
== END 2018-10-29 14:45 | disposition home or self-care (01) ==
LOC: II 13:50
PROVIDERS: ATTEND Internal Medicine
PROC: 3E013GC Introduction of Other Therapeutic Substance into Subcutaneous Tissue, Percutaneous Approach (ICD-10-PCS; principal; 2018-10-29)
DX: D69.3 Immune thrombocytopenic purpura (principal)
CPT/HCPCS: J3490; J2796; 96372

== ENCOUNTER 2018-11-05 14:22 | Outpatient (CLI) | payer MEDICARE, OTHER ==
[2018-11-05] MEDS ORDERED: ROMIPLOSTIM SUBCUT PRN (14:43)
[2018-11-05] MEDS ORDERED: DISPOSABLE SUBCUT PRN (14:43)
== END 2018-11-05 15:26 | disposition home or self-care (01) ==
LOC: II 14:22 → 5TH 14:26 → II 15:26
PROVIDERS: ATTEND Internal Medicine
PROC: 3E013GC Introduction of Other Therapeutic Substance into Subcutaneous Tissue, Percutaneous Approach (ICD-10-PCS; principal; 2018-11-05)
DX: D69.3 Immune thrombocytopenic purpura (principal)
CPT/HCPCS: 96372; J3490; J2796

== ENCOUNTER 2018-11-12 14:09 | Outpatient (CLI) | payer MEDICARE, OTHER ==
[2018-11-12 14:25] VITALS: BP 152/48
== END 2018-11-12 14:49 | disposition home or self-care (01) ==
LOC: II 14:09
PROVIDERS: ATTEND Internal Medicine Hematology & Oncology
PROC: 3E013GC Introduction of Other Therapeutic Substance into Subcutaneous Tissue, Percutaneous Approach (ICD-10-PCS; principal; 2018-11-12)
DX: D69.3 Immune thrombocytopenic purpura (principal)
CPT/HCPCS: 96372; J3490; J2796

== ENCOUNTER 2018-11-19 13:52 | Outpatient (CLI) | payer MEDICARE, OTHER ==
[2018-11-19] MEDS ORDERED: DISPOSABLE SUBCUT PRN (13:59)
[2018-11-19] MEDS ORDERED: ROMIPLOSTIM SUBCUT PRN (13:59)
[2018-11-19 14:22] VITALS: BP 158/70
== END 2018-11-19 14:44 | disposition home or self-care (01) ==
LOC: II 13:52 → 5TH 14:08 → II 14:44
PROVIDERS: ATTEND Internal Medicine Hematology & Oncology
PROC: 3E013GC Introduction of Other Therapeutic Substance into Subcutaneous Tissue, Percutaneous Approach (ICD-10-PCS; principal; 2018-11-19)
DX: D69.3 Immune thrombocytopenic purpura (principal)
CPT/HCPCS: 96401; J3490; J2796; 96372

== ENCOUNTER 2018-11-26 13:33 | Outpatient (CLI) | payer MEDICARE, OTHER ==
[2018-11-26 13:58] VITALS: BP 141/75
== END 2018-11-26 14:39 | disposition home or self-care (01) ==
LOC: II 13:33 → 5TH 13:39 → II 14:39
PROVIDERS: ATTEND Internal Medicine Hematology & Oncology
PROC: 3E013GC Introduction of Other Therapeutic Substance into Subcutaneous Tissue, Percutaneous Approach (ICD-10-PCS; principal; 2018-11-26)
DX: D69.3 Immune thrombocytopenic purpura (principal)
CPT/HCPCS: J3490; J2796; 96372

== ENCOUNTER 2018-12-03 14:05 | Outpatient (CLI) | payer MEDICARE, OTHER ==
[2018-12-03] MEDS ORDERED: ROMIPLOSTIM SUBCUT PRN (14:27)
[2018-12-03] MEDS ORDERED: DISPOSABLE SUBCUT PRN (14:27)
== END 2018-12-03 14:54 | disposition home or self-care (01) ==
LOC: II 14:05
PROVIDERS: ATTEND Internal Medicine Hematology & Oncology
PROC: 3E013GC Introduction of Other Therapeutic Substance into Subcutaneous Tissue, Percutaneous Approach (ICD-10-PCS; principal; 2018-12-03)
DX: D69.3 Immune thrombocytopenic purpura (principal)
CPT/HCPCS: 96372; J3490; J2796

== ENCOUNTER 2018-12-10 13:41 | Outpatient (CLI) | payer MEDICARE, OTHER ==
[2018-12-10 14:01] VITALS: BP 122/43
== END 2018-12-10 14:54 | disposition home or self-care (01) ==
LOC: II 13:41 → 5TH 14:08 → II 14:54
PROVIDERS: ATTEND Internal Medicine Hematology & Oncology
PROC: 3E013GC Introduction of Other Therapeutic Substance into Subcutaneous Tissue, Percutaneous Approach (ICD-10-PCS; principal; 2018-12-10)
DX: D69.3 Immune thrombocytopenic purpura (principal)
CPT/HCPCS: 96372; J3490; J2796

== ENCOUNTER 2018-12-17 13:22 | Outpatient (CLI) | payer MEDICARE, OTHER ==
[2018-12-17] MEDS ORDERED: DISPOSABLE SUBCUT PRN (13:39)
[2018-12-17] MEDS ORDERED: ROMIPLOSTIM SUBCUT PRN (13:39)
[2018-12-17 13:48] VITALS: BP 136/53
== END 2018-12-17 14:09 | disposition home or self-care (01) ==
LOC: II 13:22 → 5TH 13:42 → II 14:09
PROVIDERS: ATTEND Internal Medicine Hematology & Oncology
DX: D69.3 Immune thrombocytopenic purpura (principal)
CPT/HCPCS: 96372; J3490; J2796

== ENCOUNTER → 2018-12-24 | Outpatient (CLI) | payer MEDICARE, OTHER ==
[2018-12-24 14:07] VITALS: BP 155/58
== END | disposition home or self-care (01) ==
LOC: II 13:40
PROVIDERS: ATTEND Internal Medicine Hematology & Oncology
PROC: 3E013GC Introduction of Other Therapeutic Substance into Subcutaneous Tissue, Percutaneous Approach (ICD-10-PCS; principal; 2018-12-24)
DX: D69.3 Immune thrombocytopenic purpura (principal)
CPT/HCPCS: 96372; J3490; J2796

== ENCOUNTER 2018-12-31 08:54 | Outpatient (CLI) | payer MEDICARE, OTHER ==
[2018-12-31] MEDS ORDERED: DISPOSABLE SUBCUT PRN (09:05)
[2018-12-31] MEDS ORDERED: ROMIPLOSTIM SUBCUT PRN (09:05)
[2018-12-31 09:15] VITALS: BP 152/58
== END 2018-12-31 09:38 | disposition home or self-care (01) ==
LOC: II 08:54
PROVIDERS: ATTEND Internal Medicine Hematology & Oncology
PROC: 3E013GC Introduction of Other Therapeutic Substance into Subcutaneous Tissue, Percutaneous Approach (ICD-10-PCS; principal; 2018-12-31)
DX: D69.3 Immune thrombocytopenic purpura (principal)
CPT/HCPCS: 96372; J3490; J2796

== ENCOUNTER 2019-01-07 09:41 | Outpatient (CLI) | payer MEDICARE, OTHER ==
[2019-01-07 09:57] VITALS: BP 124/55
== END 2019-01-07 10:35 | disposition home or self-care (01) ==
LOC: II 09:41 → 5TH 09:51 → II 10:35
PROVIDERS: ATTEND Internal Medicine Hematology & Oncology
PROC: 3E013GC Introduction of Other Therapeutic Substance into Subcutaneous Tissue, Percutaneous Approach (ICD-10-PCS; principal; 2019-01-07)
DX: D69.3 Immune thrombocytopenic purpura (principal)
CPT/HCPCS: 96372; J3490; J2796

== ENCOUNTER 2019-01-18 14:44 | Outpatient (CLI) | payer MEDICARE, OTHER ==
[2019-01-18] MEDS ORDERED: ROMIPLOSTIM SUBCUT PRN (15:01)
[2019-01-18] MEDS ORDERED: DISPOSABLE SUBCUT PRN (15:01)
[2019-01-18 15:14] VITALS: BP 146/51
== END 2019-01-18 15:36 | disposition home or self-care (01) ==
LOC: II 14:44 → 5TH 14:52 → II 15:36
PROVIDERS: ATTEND Internal Medicine Hematology & Oncology
PROC: 3E013GC Introduction of Other Therapeutic Substance into Subcutaneous Tissue, Percutaneous Approach (ICD-10-PCS; principal; 2019-01-18)
DX: D69.3 Immune thrombocytopenic purpura (principal)
CPT/HCPCS: 96372; J3490; J2796

== ENCOUNTER → 2019-01-20 | Outpatient (CLI) | payer MEDICARE, OTHER ==
--- NOTE | 2019-01-20 20:17 | XCELERA REPORT ---
[address] [address] Transthoracic Echocardiogram Report Name: DEMARCUS GROSSMAN Age: 83 yrs Gender: Female : 1935 Patient Status: Outpatient Patient Location: [facility] Study Date: 01/20/2019 03:07 PM Height: 62 in Weight: 155 lb BSA: 1.7 m2 Procedure: A two-dimensional transthoracic echocardiogram with color flow and Doppler was performed. The study was technically difficult with many images being suboptimal in quality. Reason For Study: CP History: CHEST PAIN. Ordering Physician: LAILA GARCIA Performed By: Yaneth Fisher Interpretation Summary The left ventricle is normal in size. There is normal left ventricular wall thickness. LV EF is 65% The left ventricular ejection fraction is within normal limits. Doppler measurements suggest normal left ventricular diastolic function The left ventricular wall motion is normal. There is no thrombus. No ASD,VSD,or PFO. The right ventricle is not well visualized secondary to technical limitations The right atrium is normal. The left atrial size is normal. There is no evidence of mitral valve prolapse. There is no vegetation seen on the mitral valve. There is no mitral valve stenosis. There is a mild amount of mitral regurgitation There is no aortic valvular vegetation. There is no aortic valve stenosis There is no LVOT obstruction. There is a mild amount of aortic regurgitation There is no tricuspid stenosis. There is a mild amount of tricuspid regurgitation No significant pulmonary hypertension.RVSP is 28 to 33 mm of Hg , with RA mean of 5 to 10. There is no pulmonic valvular stenosis. There is no pulmonic valvular regurgitation. The aortic root is normal size. The inferior vena cava appeared normal and decreased > 50% with respiration (RAP 5-10 mmHg) There is no pericardial effusion. MMode/2D Measurements & Calculations RVDd: 3.0 cm LVIDd: 4.3 cm FS: 34.2 % Ao root diam: 2.8 cm IVSd: 0.66 cm LVIDs: 2.8 cm EDV(Teich): Ao root area: LVPWd: 1.0 cm 83.1 ml 6.2 cm2 ESV(Teich): 30.3 ml EF(Teich): 63.5 % EDV(MOD-sp4): SV(MOD-sp4): 99.1 ml 59.4 ml ESV(MOD-sp4): 39.7 ml EF(MOD-sp4): 59.9 % Doppler Measurements & Calculations MV E max ashley: MV dec slope: Ao V2 max: AI max ashley: 86.2 cm/sec 140.8 cm/sec 314.7 cm/sec MV A max ashley: 470.4 cm/sec2 Ao max PG: AI max P.6 mmHg 83.1 cm/sec MV dec time: 7.9 mmHg AI dec slope: MV E/A: 1.0 0.18 sec 162.1 cm/sec2 AI P1/2t: 568.5 msec LV dP/dt: PA V2 max: TR max ashley: 8610 mmHg/s 95.6 cm/sec 237.6 cm/sec PA max P.7 mmHg TR max P.6 mmHg Left Ventricle The left ventricle is normal in size. There is normal left ventricular wall thickness. LV EF is 65%. The left ventricular ejection fraction is within normal limits. Doppler measurements suggest normal left ventricular diastolic function. The left ventricular wall motion is normal. There is no thrombus. No ASD,VSD,or PFO. Right Ventricle The right ventricle is normal in size and function. The right ventricle is not well visualized secondary to technical limitations. Atria The right atrium is normal. The left atrial size is normal. Mitral Valve There is no evidence of mitral valve prolapse. There is no vegetation seen on the mitral valve. There is no mitral valve stenosis. There is a mild amount of mitral regurgitation. Aortic Valve There is no aortic valvular vegetation. There is no aortic valve stenosis. There is no LVOT obstruction. There is a mild amount of aortic regurgitation. Tricuspid Valve There is no tricuspid stenosis. There is a mild amount of tricuspid regurgitation. No significant pulmonary hypertension.RVSP is 28 to 33 mm of Hg , with RA mean of 5 to 10. Pulmonic Valve There is no pulmonic valvular stenosis. There is no pulmonic valvular regurgitation. Great Vessels The aortic root is normal size. The inferior vena cava appeared normal and decreased > 50% with respiration (RAP 5-10 mmHg). Effusions There is no pericardial effusion. : LAILA GARCIA > Elvia Montero
== END ==
LOC: SP 14:45
PROVIDERS: ATTEND Family Medicine
DX: R07.89 Other chest pain (principal)
CPT/HCPCS: 93306

== ENCOUNTER 2019-01-28 13:58 | Outpatient (CLI) | payer MEDICARE, OTHER ==
[2019-01-28 14:25] VITALS: BP 173/51
== END 2019-01-28 14:35 | disposition home or self-care (01) ==
LOC: II 13:58 → 5TH 13:59 → II 14:35
PROVIDERS: ATTEND Internal Medicine Hematology & Oncology
PROC: 3E013GC Introduction of Other Therapeutic Substance into Subcutaneous Tissue, Percutaneous Approach (ICD-10-PCS; principal; 2019-01-28)
DX: D69.3 Immune thrombocytopenic purpura (principal)
CPT/HCPCS: 96372; J3490; J2796

== ENCOUNTER 2019-02-04 14:08 | Outpatient (CLI) | payer MEDICARE, OTHER ==
[2019-02-04] MEDS ORDERED: ROMIPLOSTIM SUBCUT PRN (14:10)
[2019-02-04] MEDS ORDERED: DISPOSABLE SUBCUT PRN (14:10)
[2019-02-04 14:46] VITALS: BP 152/54
== END 2019-02-04 15:00 | disposition home or self-care (01) ==
LOC: II 14:08 → 5TH 14:09 → II 15:00
PROVIDERS: ATTEND Internal Medicine Hematology & Oncology
PROC: 3E013GC Introduction of Other Therapeutic Substance into Subcutaneous Tissue, Percutaneous Approach (ICD-10-PCS; principal; 2019-02-04)
DX: D69.3 Immune thrombocytopenic purpura (principal)
CPT/HCPCS: 96372; J3490; J2796

== ENCOUNTER 2019-02-11 14:34 | Outpatient (CLI) | payer MEDICARE, OTHER ==
[2019-02-11] MEDS ORDERED: ROMIPLOSTIM SUBCUT PRN (14:45)
[2019-02-11] MEDS ORDERED: DISPOSABLE SUBCUT PRN (14:45)
[2019-02-11 14:50] VITALS: BP 142/76
== END 2019-02-11 15:18 | disposition home or self-care (01) ==
LOC: II 14:34 → 5TH 14:37 → II 15:18
PROVIDERS: ATTEND Internal Medicine Hematology & Oncology
PROC: 3E013GC Introduction of Other Therapeutic Substance into Subcutaneous Tissue, Percutaneous Approach (ICD-10-PCS; principal; 2019-02-11)
DX: D69.3 Immune thrombocytopenic purpura (principal)
CPT/HCPCS: 96372; J3490; J2796

== ENCOUNTER 2019-02-18 13:30 | Outpatient (CLI) | payer MEDICARE, OTHER ==
[2019-02-18 13:53] VITALS: BP 144/51
[2019-02-18] MEDS ORDERED: ROMIPLOSTIM SUBCUT PRN (14:00)
[2019-02-18] MEDS ORDERED: DISPOSABLE SUBCUT PRN (14:00)
== END 2019-02-18 14:13 | disposition home or self-care (01) ==
LOC: II 13:30 → 5TH 13:33 → II 14:13
PROVIDERS: ATTEND Internal Medicine Hematology & Oncology
PROC: 3E013GC Introduction of Other Therapeutic Substance into Subcutaneous Tissue, Percutaneous Approach (ICD-10-PCS; principal; 2019-02-18)
DX: D69.3 Immune thrombocytopenic purpura (principal)
CPT/HCPCS: 96372; J3490; J2796

== ENCOUNTER 2019-02-25 13:39 | Outpatient (CLI) | payer MEDICARE, OTHER ==
[2019-02-25 13:55] VITALS: BP 145/57
[2019-02-25] MEDS ORDERED: DISPOSABLE SUBCUT PRN (13:55)
[2019-02-25] MEDS ORDERED: ROMIPLOSTIM SUBCUT PRN (13:55)
== END 2019-02-25 14:24 | disposition home or self-care (01) ==
LOC: II 13:39 → 5TH 13:41 → II 14:24
PROVIDERS: ATTEND Internal Medicine Hematology & Oncology
PROC: 3E013GC Introduction of Other Therapeutic Substance into Subcutaneous Tissue, Percutaneous Approach (ICD-10-PCS; principal; 2019-02-25)
DX: D69.3 Immune thrombocytopenic purpura (principal)
CPT/HCPCS: 96372; J3490; J2796

== ENCOUNTER 2019-09-23 11:10 | Outpatient (CLI) | payer MEDICARE, OTHER ==
[2019-09-23] MEDS ORDERED: DISPOSABLE SUBCUT PRN (11:13)
[2019-09-23] MEDS ORDERED: ROMIPLOSTIM SUBCUT PRN (11:13)
[2019-09-23 11:22] VITALS: BP 141/48
== END 2019-09-23 11:41 | disposition home or self-care (01) ==
LOC: II 11:10 → 5TH 11:21 → II 11:41
PROVIDERS: ATTEND Internal Medicine
DX: D69.3 Immune thrombocytopenic purpura (principal)
CPT/HCPCS: 96372; J3490; J2796

== ENCOUNTER 2019-09-30 12:22 | Outpatient (CLI) | payer MEDICARE, OTHER ==
[2019-09-30 12:34] VITALS: BP 151/42
== END 2019-09-30 12:58 | disposition home or self-care (01) ==
LOC: II 12:22 → 5TH 12:24 → II 12:58
PROVIDERS: ATTEND Internal Medicine
DX: D69.3 Immune thrombocytopenic purpura (principal)
CPT/HCPCS: 96372; J3490; J2796

== ENCOUNTER 2019-10-07 11:48 | Outpatient (CLI) | payer MEDICARE, OTHER ==
[2019-10-07 12:01] VITALS: BP 153/44
== END 2019-10-07 12:34 | disposition home or self-care (01) ==
LOC: II 11:48 → 5TH 11:50 → II 12:34
PROVIDERS: ATTEND Internal Medicine
DX: D69.3 Immune thrombocytopenic purpura (principal)
CPT/HCPCS: 96372; J3490; J2796

== ENCOUNTER 2019-10-14 11:26 | Outpatient (CLI) | payer MEDICARE, OTHER ==
[2019-10-14 11:48] VITALS: BP 165/62
[2019-10-14] MEDS ORDERED: DISPOSABLE SUBCUT PRN (12:00)
[2019-10-14] MEDS ORDERED: ROMIPLOSTIM SUBCUT PRN (12:00)
== END 2019-10-14 12:20 | disposition home or self-care (01) ==
LOC: II 11:26 → 5TH 11:27 → II 12:20
PROVIDERS: ATTEND Internal Medicine
DX: D69.3 Immune thrombocytopenic purpura (principal)
CPT/HCPCS: 96372; J3490; J2796

== ENCOUNTER 2019-10-21 11:40 | Outpatient (CLI) | payer MEDICARE, OTHER ==
[2019-10-21 11:56] VITALS: BP 171/51
[2019-10-21] MEDS ORDERED: DISPOSABLE SUBCUT PRN ×2 (12:10→12:30)
[2019-10-21] MEDS ORDERED: ROMIPLOSTIM SUBCUT PRN ×2 (12:10→12:30)
== END 2019-10-21 12:28 | disposition home or self-care (01) ==
LOC: II 11:40 → 5TH 11:58 → II 12:28
PROVIDERS: ATTEND Internal Medicine
DX: D69.3 Immune thrombocytopenic purpura (principal)
CPT/HCPCS: 96372; J2796; J3490

== ENCOUNTER 2019-10-28 11:44 | Outpatient (CLI) | payer MEDICARE, OTHER ==
[2019-10-28 12:31] VITALS: BP 161/58
== END 2019-10-28 12:37 | disposition home or self-care (01) ==
LOC: II 11:44 → 5TH 11:47 → II 12:37
PROVIDERS: ATTEND Internal Medicine
DX: D69.3 Immune thrombocytopenic purpura (principal)
CPT/HCPCS: 96372; J3490; J2796

== ENCOUNTER 2019-11-11 11:32 | Outpatient (CLI) | payer MEDICARE ==
[2019-11-11 12:01] VITALS: BP 169/53
== END 2019-11-11 12:15 | disposition home or self-care (01) ==
LOC: II 11:32
PROVIDERS: ATTEND Internal Medicine
DX: D69.3 Immune thrombocytopenic purpura (principal)
CPT/HCPCS: 96372; J3490; J2796

== ENCOUNTER 2019-11-18 11:10 | Outpatient (CLI) | payer MEDICARE ==
[2019-11-18 11:23] VITALS: BP 147/55
== END 2019-11-18 11:37 | disposition home or self-care (01) ==
LOC: II 11:10 → 5TH 11:13 → II 11:37
PROVIDERS: ATTEND Internal Medicine
DX: D69.3 Immune thrombocytopenic purpura (principal)
CPT/HCPCS: 96372; J3490; J2796

== ENCOUNTER 2019-11-25 11:45 | Outpatient (CLI) | payer MEDICARE ==
[2019-11-25 11:56] VITALS: BP 181/61
== END 2019-11-25 12:15 | disposition home or self-care (01) ==
LOC: II 11:45 → 5TH 11:46 → II 12:15
PROVIDERS: ATTEND Internal Medicine
DX: D69.3 Immune thrombocytopenic purpura (principal)
CPT/HCPCS: 96372; J3490; J2796

== ENCOUNTER 2019-12-02 11:19 | Outpatient (CLI) | payer MEDICARE ==
[2019-12-02 12:09] VITALS: BP 171/58
== END 2019-12-02 13:07 | disposition home or self-care (01) ==
LOC: II 11:19 → 5TH 13:05 → II 13:07
PROVIDERS: ATTEND Internal Medicine Hematology & Oncology
DX: D69.3 Immune thrombocytopenic purpura (principal)
CPT/HCPCS: 96372; J3490; J2796

== ENCOUNTER 2019-12-09 10:46 | Outpatient (CLI) | payer MEDICARE ==
[2019-12-09 11:01] VITALS: BP 183/75
== END 2019-12-09 11:20 | disposition home or self-care (01) ==
LOC: II 10:46 → 5TH 10:49 → II 11:20
PROVIDERS: ATTEND Internal Medicine
DX: D69.3 Immune thrombocytopenic purpura (principal)
CPT/HCPCS: 96372; J3490; J2796

== ENCOUNTER 2019-12-16 12:03 | Outpatient (CLI) | payer MEDICARE ==
[2019-12-16 12:14] VITALS: BP 172/53
== END 2019-12-16 12:45 | disposition home or self-care (01) ==
LOC: II 12:03 → 5TH 12:07 → II 12:45
PROVIDERS: ATTEND Internal Medicine
DX: D69.3 Immune thrombocytopenic purpura (principal)
CPT/HCPCS: 96372; J3490; J2796

== ENCOUNTER 2019-12-23 10:50 | Outpatient (CLI) | payer MEDICARE ==
[2019-12-23 11:22] VITALS: BP 160/57
== END 2019-12-23 11:35 | disposition home or self-care (01) ==
LOC: II 10:50 → 5TH 10:52 → II 11:35
PROVIDERS: ATTEND Internal Medicine
DX: D69.3 Immune thrombocytopenic purpura (principal)
CPT/HCPCS: 96372; J3490; J2796

== ENCOUNTER 2019-12-30 11:22 | Outpatient (CLI) | payer MEDICARE ==
[2019-12-30 11:32] VITALS: BP 137/45
[2019-12-30] MEDS ORDERED: DISPOSABLE SUBCUT PRN (11:33)
[2019-12-30] MEDS ORDERED: ROMIPLOSTIM SUBCUT PRN (11:33)
== END 2019-12-30 11:54 | disposition home or self-care (01) ==
LOC: II 11:22 → 5TH 11:33 → II 11:54
PROVIDERS: ATTEND Internal Medicine
DX: D69.3 Immune thrombocytopenic purpura (principal)
CPT/HCPCS: 96372; J3490; J2796

== ENCOUNTER 2020-01-06 11:14 | Outpatient (CLI) | payer MEDICARE ==
[2020-01-06 11:23] VITALS: BP 170/111
== END 2020-01-06 11:44 | disposition home or self-care (01) ==
LOC: II 11:14 → 5TH 11:16 → II 11:44
PROVIDERS: ATTEND Internal Medicine
DX: D69.3 Immune thrombocytopenic purpura (principal)
CPT/HCPCS: 96372; J3490; J2796

== ENCOUNTER 2020-01-13 11:20 | Outpatient (CLI) | payer MEDICARE ==
[2020-01-13 11:28] VITALS: BP 181/58
== END 2020-01-13 12:00 | disposition home or self-care (01) ==
LOC: II 11:20 → 5TH 11:21 → II 12:00
PROVIDERS: ATTEND Internal Medicine
DX: D69.3 Immune thrombocytopenic purpura (principal)
CPT/HCPCS: 96372; J3490; J2796

== ENCOUNTER 2020-01-20 11:58 | Outpatient (CLI) | payer MEDICARE ==
[2020-01-20] MEDS ORDERED: ROMIPLOSTIM SUBCUT PRN (12:06)
[2020-01-20] MEDS ORDERED: DISPOSABLE SUBCUT PRN (12:06)
[2020-01-20 12:08] VITALS: BP 188/54
== END 2020-01-20 12:55 | disposition home or self-care (01) ==
LOC: II 11:58 → 5TH 12:00 → II 12:55
PROVIDERS: ATTEND Internal Medicine
DX: D69.3 Immune thrombocytopenic purpura (principal)
CPT/HCPCS: 96372; J3490; J2796

== ENCOUNTER 2020-01-27 11:23 | Outpatient (CLI) | payer MEDICARE ==
[2020-01-27] MEDS ORDERED: DISPOSABLE SUBCUT PRN (11:37)
[2020-01-27] MEDS ORDERED: ROMIPLOSTIM SUBCUT PRN (11:37)
[2020-01-27 11:54] VITALS: BP 186/61
== END 2020-01-27 11:59 | disposition home or self-care (01) ==
LOC: II 11:23 → 5TH 11:25 → II 11:59
PROVIDERS: ATTEND Internal Medicine
DX: D69.3 Immune thrombocytopenic purpura (principal)
CPT/HCPCS: 96372; J3490; J2796

== ENCOUNTER 2020-02-03 10:55 | Outpatient (CLI) | payer MEDICARE ==
[2020-02-03 11:06] VITALS: BP 165/57
== END 2020-02-03 11:23 | disposition home or self-care (01) ==
LOC: II 10:55 → 5TH 10:57 → II 11:23
PROVIDERS: ATTEND Internal Medicine
DX: D69.3 Immune thrombocytopenic purpura (principal)
CPT/HCPCS: 96372; J3490; J2796

== ENCOUNTER → 2020-03-26 | Outpatient (CLI) | payer MEDICARE ==
--- NOTE | 2020-03-26 13:53 | RADIOLOGY REPORT (SQ) ---
EXAM DESCRIPTION: SHOULDER LEFT 2 OR MORE VIEWS IMAGES COMPLETED DATE/TIME: 03/26/2020 1:24 pm REASON FOR STUDY: PAIN IN LT SHOULDER M25.512 PAIN IN LEFT SHOULDER COMPARISON: None. NUMBER OF VIEWS: Three views. TECHNIQUE: Internal rotation, external rotation, and Y view images acquired of the left shoulder. LIMITATIONS: None. FINDINGS: MINERALIZATION: Normal. BONES: No acute fracture. No worrisome bone lesions. JOINTS: Prominent spurring along the undersurface of the acromion. Osteophytic spurring at the inser tion site of the supraspinatus tendon. VISUALIZED LUNGS AND RIBS: No pneumothorax. No rib fracture. SOFT TISSUES: No radiopaque foreign body. OTHER: No other significant finding. IMPRESSION: Degenerative changes as described. No acute fracture or dislocation. TECHNICAL DOCUMENTATION: JOB ID: [id number] [employer]- All Rights Reserved Reading location - IP/workstation name: [email or web address]
== END ==
LOC: OD 13:12
PROVIDERS: ATTEND Family Medicine
DX: M19.012 Primary osteoarthritis, left shoulder (principal); M25.512 Pain in left shoulder

== ENCOUNTER → 2020-10-12 | Outpatient (CLI) | payer MEDICARE, OTHER ==
--- NOTE | 2020-10-12 12:54 | RADIOLOGY REPORT (SQ) ---
EXAM DESCRIPTION: L SPINE 2 VIEWS IMAGES COMPLETED DATE/TIME: 10/12/2020 12:04 pm REASON FOR STUDY: (M54.5)LOW BACK PAIN M54.5 LOW BACK PAIN COMPARISON: None. NUMBER OF VIEWS: Two views. TECHNIQUE: AP and lateral radiographic images acquired of the lumbar spine. LIMITATIONS: None. FINDINGS: MINERALIZATION: Normal. SEGMENTATION: Normal. No transitional anatomy. ALIGNMENT: Normal. VERTEBRAE: Maintained height. No fracture or worrisome bone lesion. DISCS: Disc narrowing from L3-S1 with marginal osteophytes. POSTERIOR ELEMENTS: Hypertrophic facet changes from L3-S1. HARDWARE: None in the spine. PARASPINAL SOFT TISSUES: Normal. PELVIS: Intact as visualized. No fractures or worrisome bone lesions. SI joints intact. OTHER: No other significant finding. IMPRESSION: Degenerative disc disease, spondylosis, and facet arthropathy. TECHNICAL DOCUMENTATION: JOB ID: [id number] [employer]- All Rights Reserved Reading location - IP/workstation name: [email or web address]
== END ==
LOC: RAD 11:41
PROVIDERS: ATTEND Family Medicine
DX: M51.37 Other intervertebral disc degeneration, lumbosacral region (principal); M47.817 Spondylosis without myelopathy or radiculopathy, lumbosacral region
CPT/HCPCS: 72100